=== PATIENT | female | born 1980 | race African-American/Black ===

== ENCOUNTER 2018-04-05 07:14 | Emergency (ER) | END 2018-04-05 09:57 | disposition home or self-care (01) ==

== ENCOUNTER 2019-03-04 18:35 | Emergency (ER) | payer OTHER ==
[~2019-03-04] VITALS: Ht 170.2 cm; Wt 160.8 kg
[~2019-03-04 18:35] MED LIST: ALBU8.5H8 INH; AZIT250T PO; BENZ-6 PO; D-ME473S2 PO
[2019-03-04 18:40] VITALS: BP 176/77; PULSE 80; RESP 20; Ht 170.2 cm; Wt 160.8 kg
[2019-03-04] MEDS ORDERED: ACET500C5 PO (20:37)
[2019-03-04] MEDS ORDERED: NAPR-985 PO (20:37)
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
[2019-03-04] MEDS ORDERED: DEXAMETHASONE 10 MG/ML 1 ML INJ IM ONE (21:00)
== END 2019-03-04 21:10 | disposition home or self-care (01) ==
LOC: FTE 18:35
DX: M25.512 Pain in left shoulder (principal); M54.2 Cervicalgia; Z87.891 Personal history of nicotine dependence
CPT/HCPCS: 96372; 99284; J1100